=== PATIENT | female | born 1990 | race Caucasian/White ===

== ENCOUNTER 2019-01-25 04:59 | Day surgery (SDC) | payer OTHER ==
[2019-01-24 16:19] VITALS: BMI 17.9
[2019-01-25] MEDS ORDERED: ACETAMINOPHEN 325 MG TABLET (FP) PO PRN (12:10)
[2019-01-25] MEDS ORDERED: LACTATED RINGERS SOLUTION 1,000 ML IV SCH ×2 (12:15→14:00)
--- NOTE | 2019-01-25 12:29 | HP ---
Admitting History and Physical - Admission Chief Complaint: Abnormal uterine bleeding. History of Present Illness: 28 y/o female was seen in office with complaints of abnormal uterine bleeding. Pt had ultrasound and subsequent HSN showing anterior 2.5cm leiomyoma pushing into uterine cavity (Type 2). Periods are long and heavy. Has been on Tranexamic acid up until this point to help with bleeding until surgery could be performed. History Source: Patient, Medical Record - Past Medical History Cardiovascular: No: HTN, DC Pulmonary: No: Bronchitis, COPD Gastrointestinal: No: GERD, Inflamatory Bowel Disease Hepatobiliary: No: Hepatitis B, Hepatitis C Renal/: No: UTI Reproductive: Yes: Fibroids. No: Ectopic , Endometriosis, PID ...LMP: 09/07/18 ...: No Infectious Disease: No: HIV, STD's Psych: No: Anxiety, Bipolar, Depression - Past Surgical History Past Surgical History: Yes: None - Smoking History Smoking history: Never smoked Have you smoked in the past 12 months: No - Alcohol/Substance Use Hx Alcohol Use: No History of Substance Use: reports: None - Social History ADL: Independent History of Recent Travel: No Home Medications - Allergies Allergies/Adverse Reactions: Allergies Allergy/AdvReac Type Severity Reaction Status Date / Time No Known Drug Allergies Allergy Verified 01/25/19 11:11 - Home Medications Home Medications: Ambulatory Orders Omeprazole 30 mg PO DAILY 01/24/19 Tranexamic Acid 650 mg PO DAILY 01/24/19 Review of Systems - Review of Systems Constitutional: reports: No Symptoms Eyes: reports: No Symptoms HENT: reports: No Symptoms Neck: reports: No Symptoms Cardiovascular: reports: No Symptoms Respiratory: reports: No Symptoms Gastrointestinal: reports: No Symptoms Genitourinary: reports: Vaginal Bleeding Breasts: reports: No Symptoms Reported Musculoskeletal: reports: No Symptoms Integumentary: reports: No Symptoms Neurological: reports: No Symptoms Endocrine: reports: No Symptoms Hematology/Lymphatic: reports: No Symptoms Psychiatric: reports: No Symptoms Physical Examination Vital Signs: Vital Signs Temperature 98.3 F 01/25/19 11:03 Pulse Rate 72 01/25/19 11:03 Respiratory Rate 16 01/25/19 11:03 Blood Pressure 88/50 L 01/25/19 11:03 O2 Sat by Pulse Oximetry (%) 100 01/25/19 11:03 Constitutional: Yes: Well Nourished, No Distress, Calm Eyes: Yes: Conjunctiva Clear, EOM Intact HENT: Yes: Atraumatic Neck: Yes: Trachea Midline Cardiovascular: Yes: Regular Rate and Rhythm Respiratory: Yes: Regular Gastrointestinal: Yes: Normal Bowel Sounds, Soft. No: Distention Renal/: Yes: Vaginal Bleeding Integumentary: Yes: WNL Neurological: Yes: Alert, Oriented Psychiatric: Yes: Alert, Oriented Imaging - Results Ultrasound: Report Reviewed, Image Reviewed Problem List - Problems (1) Leiomyoma Code(s): D21.9 - BENIGN NEOPLASM OF CONNECTIVE AND OTHER SOFT TISSUE, UNSP (2) Abnormal uterine bleeding Code(s): N93.9 - ABNORMAL UTERINE AND VAGINAL BLEEDING, UNSPECIFIED Assessment/Plan 28 y/o with anterior uterine wall fibroid, type 2, causing AUB plan for hysteroscopic myomectomy, suction D&C procedure explained at length to patient in office, R/B/A discussed at time of informed consent on 01/20/19 consent reconfirmed today NPO SCDs Anesthesia/Nursing staff aware and to see pt
[2019-01-25] MEDS ORDERED: MIDAZOLAM HCL 2 MG/2 ML SINGLE DOSE VIAL ONE (12:45)
[2019-01-25] MEDS ORDERED: PROPOFOL 20 ML ONE (12:48)
[2019-01-25] MEDS ORDERED: oxyCODONE HCL 5 MG TABLET PO PRN (13:58)
[2019-01-25] MEDS ORDERED: PROMETHAZINE HCL 25 MG/1 ML VIAL IVPUSH PRN (13:58)
[2019-01-25] MEDS ORDERED: ONDANSETRON 4 MG/2 ML VIAL IVPUSH PRN (13:58)
--- NOTE | 2019-01-25 16:19 | OP ---
Operative Note - Note: Operative Date: 01/25/19 Pre-Operative Diagnosis: aub, fibroid Operation: hysteroscopic myomectomy, suction D&C Findings: anterior uterine submucosal leiomyoma Post-Operative Diagnosis: Same as Pre-op Surgeon: Trice Hardin Anesthesiologist/STORE HAND: Tania Blake MD Anesthesia: General Specimens Removed: fibroid Drains, Volume Out (mls): 1,080 (NSS fluid defecit) Operative Report Dictated: Yes
[2019-01-25 16:39] VITALS: PULSE 79; TEMP 98.4
[2019-01-25 17:21] VITALS: BP 94/53
--- NOTE | 2019-01-26 11:05 | OP ---
DATE OF OPERATION: 01/25/2019 PREOPERATIVE DIAGNOSIS: Abnormal uterine bleeding and anterior submucosal uterine fibroid. POSTOPERATIVE DIAGNOSIS: Abnormal uterine bleeding and anterior submucosal uterine fibroid. PROCEDURE: Hysteroscopic myomectomy, suction dilation and curettage. SURGEON: Trice Hardin DO ANESTHESIA: General by Tania Blake MD ESTIMATED BLOOD LOSS: 10 mL. COMPLICATIONS: None. SPECIMENS REMOVED: Uterine fibroid. FLUID DEFICIT: 1080 mL normal saline fluid deficit. Sponge and instrument count correct. DISPOSITION: Stable to PACU. BRIEF HISTORY AND PROCEDURE: Patient is a 28-year-old female who was in the office with complaints of abnormal uterine bleeding. Upon hysterosonogram was found to have a submucosal intrauterine fibroid. The patient signed consents for a hysteroscopic resection in the office. She was admitted to [facility] on January 25, 2019. Consents were re-confirmed. She was taken back to the operating room, given general anesthesia, placed in dorsal lithotomy position, prepped and draped in the usual sterile fashion. A hard time-out was performed. A speculum was placed inside the vagina. The cervix was easily visualized and grasped with a tenaculum. The cervix was dilated to accommodate an operative hysteroscope, which was advanced to the fundus of the uterus. Tubal ostia were noted. The anterior portion of the uterus revealed a large uterine fibroid, which was resected in several passes using the resectoscope device. Suction dilation and curettage was used to remove all of the detached tissue. Several passes with the resection device were completed until the majority of the uterine fibroid was removed. When a fluid deficit of 1000 mL was reached, the procedure was terminated. One final pass with the resectoscope revealed no evidence of uterine perforation. All instruments were removed from the surgical site. Minimal bleeding was noted from the tenaculum sites. All specimens were sent to Pathology for permanent evaluation. The patient was awoken from anesthesia in stable condition recovering in the PACU at the time of this dictation. Sponge, needle and instrument counts were reported to be correct. TRICE HARDIN DO /[id number] MTDD
--- NOTE | 2019-01-30 17:41 | PATH ---
Surgical Pathology Report Patient Name: REYMUNDO GHOSH [facility]. Rec. #: [id number] /Age/Gender: 1990 (Age: 28) / F Account: [id number] Location: [facility] SURGICAL Taken: 01/25/2019 Received: 01/26/2019 Reported: 01/30/2019 Physicians: Trice Hardin M.D. Specimen(s) Received FIBROID Clinical History Fibroid Final Diagnosis FIBROID, HYSTEROSCOPIC MYOMECTOMY, SUCTION DILATION AND CURETTAGE: 2 G, FRAGMENTS OF LEIOMYOMA, PROLIFERATIVE ENDOMETRIUM, AND SCANT BENIGN ENDOCERVICAL EPITHELIUM. Electronically Signed Pat Garber M.D. Gross Description Received in formalin labeled "fibroid," is a 2 g, 4.5 x 3.2 x 0.6 cm aggregate of bryant, firm to rubbery portions of tissue, consistent with morcellated fibroid. The specimen is entirely submitted in 3 cassettes. /01/26/2019 saudi01/26/2019
== END 2019-01-25 17:20 | disposition home or self-care (01) ==
LOC: JASU-SURG 04:59
PROVIDERS: ATTEND Obstetrics & Gynecology
PROC: 0UJD8ZZ Inspection of Uterus and Cervix, Via Natural or Artificial Opening Endoscopic (ICD-10-PCS; 2019-01-25)
PROC: 0UB98ZZ Excision of Uterus, Via Natural or Artificial Opening Endoscopic (ICD-10-PCS; principal; 2019-01-25 12:30)
PROC: 0UDB7ZX Extraction of Endometrium, Via Natural or Artificial Opening, Diagnostic (ICD-10-PCS; 2019-01-25 12:30)
DX: N93.9 Abnormal uterine and vaginal bleeding, unspecified (principal); D25.0 Submucous leiomyoma of uterus; D64.9 Anemia, unspecified
CPT/HCPCS: 36415; 84703; 86850; 86900; 86901; 88305-TC; 94760

== ENCOUNTER 2021-06-19 04:24 | Inpatient (IN) | payer OTHER ==
[2021-06-16 14:27] VITALS: BMI 20.8
[2021-06-19] MEDS ORDERED: LIDOCAINE HCL/PF 2% SDV 5ML VIAL ONE (07:16)
[2021-06-19] MEDS ORDERED: PROPOFOL 20 ML ONE ×2 (07:16)
[2021-06-19] MEDS ORDERED: DEXAMETHASONE SOD PHOSPHATE 4 MG/1 ML VIAL ONE (07:16)
[2021-06-19] MEDS ORDERED: KETOROLAC TROMETHAMINE 30 MG/1 ML VIAL ONE ×2 (07:16→08:51)
[2021-06-19] MEDS ORDERED: ROCURONIUM BROMIDE 50 MG/5 ML SYRINGE ONE (07:16)
[2021-06-19] MEDS ORDERED: ceFAZolin SODIUM 1 GM VIAL ONE ×2 (07:16→16:05)
[2021-06-19] MEDS ORDERED: SODIUM CHLORIDE 0.9% P/F 10 ML VIAL IJ ONE (07:16)
[2021-06-19] MEDS ORDERED: SUCCINYLCHOLINE CHLORIDE 200 MG/10 ML SYRINGE ONE (07:17)
[2021-06-19] MEDS ORDERED: BUPIVACAINE LIPOSOME/PF (EXPAREL) 266 MG/20 ML VIAL ONE (07:21)
[2021-06-19] MEDS ORDERED: BUPIVACAINE HCL/PF 0.25% (2.5MG/ML) 10 ML VIAL ONE (07:21)
[2021-06-19] MEDS ORDERED: MIDAZOLAM HCL 2 MG/2 ML SINGLE DOSE VIAL ONE ×2 (07:22)
[2021-06-19] MEDS ORDERED: BUPIVACAINE HCL/PF 0.5% (5MG/ML) 10 ML VIAL ONE (07:49)
[2021-06-19] MEDS ORDERED: ceFAZolin SODIUM 1 GM VIAL IVPB ONE (08:15)
[2021-06-19] MEDS ORDERED: HYDROmorphone HCl 2 MG/ML VIAL ONE (08:39)
[2021-06-19] MEDS ORDERED: TRANEXAMIC ACID 1000 MG/10 ML VIAL ONE (08:40)
[2021-06-19] MEDS ORDERED: NEOSTIGMINE METHYLSULFATE 0.5 MG/ML - 10 ML MDV ONE (08:51)
[2021-06-19] MEDS ORDERED: GLYCOPYRROLATE 0.2 MG/1 ML VIAL ONE (08:51)
[2021-06-19] MEDS ORDERED: ONDANSETRON 4 MG/2 ML VIAL IVPUSH PRN ×2 (09:53→10:06)
[2021-06-19] MEDS ORDERED: HYDROmorphone HCl 2 MG/ML VIAL IVPUSH PRN ×2 (09:54)
[2021-06-19] MEDS ORDERED: ACETAMINOPHEN 1000 MG/100 ML BAG IVPB ONE (09:54)
[2021-06-19] MEDS ORDERED: LACTATED RINGERS SOLUTION 1,000 ML IV SCH (10:00)
[2021-06-19] MEDS ORDERED: BISACODYL 5 MG TABLET.DR (FP) PO PRN (10:06)
[2021-06-19] MEDS ORDERED: SIMETHICONE 80 MG TAB.CHEW (FP) PO PRN (10:06)
[2021-06-19] MEDS ORDERED: IBUPROFEN 800 MG/8 ML IJ IVPB PRN (10:06)
[2021-06-19] MEDS ORDERED: DOCUSATE SODIUM 100 MG CAPSULE (FP) PO PRN (10:06)
[2021-06-19] MEDS ORDERED: ACETAMINOPHEN 325 MG TABLET (FP) PO PRN (10:06)
[2021-06-19] MEDS ORDERED: oxyCODONE HCL 5 MG TABLET PO PRN ×4 (12:23→12:26)
[2021-06-19 13:42] LABS: HEMATOCRIT 36.1 % (32.4-45.2); HEMOGLOBIN 11.9 GM/dL (10.7-15.3); MCH 29.1 pg (25.7-33.7); MEAN CELL VOLUME 88.3 fl (80-96); MEAN PLT VOLUME 8.6 fl (7.5-11.1); PLATELET COUNT 276 10^3/uL (134-434); RBC 4.09 M/mm3 (3.60-5.2); RDW 15.7 % (11.6-15.6); WHITE BLOOD COUNT 14.9 K/mm3 (4.0-10.0)
[2021-06-19 14:21] LABS: CALCIUM 9.2 mg/dL (8.5-10.1)
[2021-06-19 14:22] LABS: BLOOD UREA NITROGEN 7.3 mg/dL (7-18)
[2021-06-19 14:25] LABS: CREATININE 0.5 mg/dL (0.55-1.3)
[2021-06-19] MEDS ORDERED: DEXTROSE 5%-WATER - 50 ML IVPB ONE (16:04)
[2021-06-19] MEDS: CEFAZOLIN 1 GM in DEXTROSE 5%-WATER - 1 GM/50 ML IVPB IVPB SCH (16:10)
[2021-06-19] MEDS: KETOROLAC TROMETHAMINE 30 MG/1 ML VIAL IVPUSH PRN (22:04)
[2021-06-19] MEDS: MINOXIDIL 2.5 MG TABLET PO SCH (22:19)
[2021-06-20] MEDS ORDERED: DEXTROSE 5%-WATER - 50 ML IVPB ONE ×2 (00:02→09:04)
[2021-06-20] MEDS ORDERED: ceFAZolin SODIUM 1 GM VIAL ONE ×2 (00:03→09:04)
[2021-06-20] MEDS: CEFAZOLIN 1 GM in DEXTROSE 5%-WATER - 1 GM/50 ML IVPB IVPB SCH ×2 (00:07→09:07)
[2021-06-20 08:27] LABS: HEMATOCRIT 31.9 % (32.4-45.2); HEMOGLOBIN 10.9 GM/dL (10.7-15.3); MCH 30.1 pg (25.7-33.7); MCHC 34.2 g/dl (32.0-36.0); MEAN CELL VOLUME 87.8 fl (80-96); MEAN PLT VOLUME 9.2 fl (7.5-11.1); PLATELET COUNT 222 10^3/uL (134-434); RBC 3.63 M/mm3 (3.60-5.2); RDW 15.7 % (11.6-15.6); WHITE BLOOD COUNT 9.7 K/mm3 (4.0-10.0)
[2021-06-20 08:49] LABS: BLOOD UREA NITROGEN 5.9 mg/dL (7-18)
[2021-06-20 08:53] LABS: CREATININE 0.4 mg/dL (0.55-1.3)
[2021-06-20] MEDS: KETOROLAC TROMETHAMINE 30 MG/1 ML VIAL IVPUSH PRN (09:07)
[2021-06-20] MEDS ORDERED: FERROUS SULFATE 142 MG PO SCH (10:00)
[2021-06-20] MEDS ORDERED: DUTASTERIDE 0.5 MG CAP (FP) PO SCH (10:00)
[2021-06-20] MEDS ORDERED: ENOXAPARIN NA (PORCINE) 40 MG/0.4 ML DISP.SYRIN SQ SCH (10:00)
[2021-06-20] MEDS ORDERED: PATIENT'S OWN MEDICATION (NON-FORMULARY) (Omeprazole [Omeprazole] 20 MG Tablet.Dr) PO SCH (10:00)
[2021-06-20] MEDS ORDERED: ACETAMINOPHEN 500 MG TABLET (FP) PO SCH (12:15)
[2021-06-20] MEDS: IBUPROFEN 600 MG TABLET (FP) PO SCH ×2 (14:24→23:08)
[2021-06-20] MEDS: ACETAMINOPHEN 500 MG TABLET (FP) PO SCH ×2 (14:25→20:41)
[2021-06-20 20:36] VITALS: PULSE 76; TEMP 98.4
[2021-06-20] MEDS: MINOXIDIL 2.5 MG TABLET PO SCH (22:03)
[2021-06-21] MEDS: ACETAMINOPHEN 500 MG TABLET (FP) PO SCH (06:35)
[2021-06-21] MEDS: IBUPROFEN 600 MG TABLET (FP) PO SCH (06:48)
[2021-06-21 07:40] VITALS: BP 100/65
== END 2021-06-21 08:30 | disposition home or self-care (01) | DRG 743 ==
LOC: J2C 04:24 → EDSTATUS 10:30 → J3W 12:27
PROVIDERS: ADMIT Obstetrics & Gynecology; ATTEND Obstetrics & Gynecology
PROC: 0UB90ZZ Excision of Uterus, Open Approach (ICD-10-PCS; principal; 2021-06-19 10:00)
DX: D25.0 Submucous leiomyoma of uterus (principal); D25.1 Intramural leiomyoma of uterus; D25.2 Subserosal leiomyoma of uterus
CPT/HCPCS: 36415; 80048; 81025; 84703; 85027; 86850; 86900; 86901; 86922; 88305-TC; 94010; 94760